=== PATIENT | female | born 1975 | race Caucasian/White ===

== ENCOUNTER 2019-07-22 08:03 | Outpatient (RCR) | payer OTHER, SELFPAY | END 2019-10-20 23:59 | disposition home or self-care (01) | LOC: CHSOT 08:03 | DX: Z98.890 Other specified postprocedural states (principal); M25.521 Pain in right elbow | CPT/HCPCS: 97014; 97110; G0283 ==

== ENCOUNTER 2021-08-31 15:44 | Outpatient (CLI) | payer OTHER, SELFPAY ==
[2021-08-31 17:21] LABS: SARS-CoV-2 Ag Positive (Negative)
== END 2021-08-31 15:45 | disposition home or self-care (01) ==
LOC: CHSLAB 15:49
PROVIDERS: PCP Family Medicine; Visit Provider Nurse Practitioner
DX: U07.1 COVID-19 (principal)
CPT/HCPCS: 87426; C9803

== ENCOUNTER 2025-05-11 08:20 | Outpatient (CLI) | payer OTHER, SELFPAY ==
--- NOTE | ~2025-05-11 | MM_ITS ---
EXAMINATION: MM scrn therese implant BI w lyle HISTORY: Screening mammogram TECHNIQUE: Craniocaudal and mediolateral oblique 3-D tomosynthesis images with implant displacement and synthetic 2-D images were generated. Craniocaudal and mediolateral oblique views of the breasts without implant displacement were obtained using full field digital mammography. CAD analysis was submitted and interpreted. COMPARISON: No prior mammogram is available for comparison at this institution. BREAST PARENCHYMAL COMPOSITION: FINDINGS: There are bilateral subpectoral implants. There is no evidence of suspicious mass, calcification, or architectural distortion to suggest malignancy in either breast. There has been no suspicious interval change. IMPRESSION: 1. No mammographic evidence of malignancy. 2. Recommend routine screening mammography in one year. BI-RADS Category 1: Negative Reviewed, dictated and finalized at location [facility].
== END 2025-05-11 08:21 | disposition home or self-care (01) ==
LOC: ANHIMG 08:22
PROVIDERS: PCP Nurse Practitioner Family; Visit Provider Nurse Practitioner Family
DX: Z12.31 Encounter for screening mammogram for malignant neoplasm of breast (principal); Z98.82 Breast implant status
CPT/HCPCS: 77063; 77067

== ENCOUNTER 2025-06-01 01:16 | Day surgery (SDC) | payer OTHER, SELFPAY ==
[2025-02-27 11:16] VITALS: BMI 25.0
[2025-05-14 13:10] VITALS: BMI 25.0
[2025-06-01 11:37] VITALS: BP 121/70; PULSE 62; RESP 18; TEMP 36.8; O2SAT 100
--- NOTE | 2025-06-01 11:49 | WPDANESEPPF ---
Anes - Initial Pre Proc Eval Procedure: Operation Date: 06/01/25 13:00 Proposed Procedures p Screening Colonoscopy - Lonnie Manning MD Date/Time: 06/01/25 11:49 Surgeon: Lonnie Manning MD Pre Op Diagnosis: Screening Patient Data Age: 49 Gender: F Height: 1.63 m Weight: 68.4 kg Last Vital Signs Temp 98.2 F 06/01/25 11:37 Pulse 62 06/01/25 11:37 Resp 18 06/01/25 11:37 BP 121/70 06/01/25 11:37 Pulse Ox 100 06/01/25 11:37 O2 Del Method Room Air 06/01/25 11:37 Allergies Allergy/AdvReac Type Severity Reaction Status Date / Time No Known Allergies Allergy Verified 05/14/25 13:09 Home Medications ?Medication ?Instructions ?Recorded ?Confirmed ?Type levonorgestrel (Mirena) 1 device intrauterine ONCE 11/05/24 05/14/25 History benzonatate 200 mg capsule 200 mg PO TID PRN cough #30 caps 01/29/25 02/27/25 Rx Patient hx anesthesia problems: none Family hx anesthesia problems: none Results Review: All pre-operative results and documents have been reviewed as part of the pre-operative evaluation. [facility] Past Medical History Medical History Arthritis Surgical History Surgical History Hx of elbow surgery plate in right elbow Hx of breast implants, bilateral Family History Family History Mother Asthma Thyroid disorder Sibling Thyroid disorder Father Malignant neoplasm of esophagus Other Family history of malignant neoplasm Social History Social History Smoking status: Never smoker Alcohol intake: current Drinks per week: 2 Substance use: never Substance use type: does not use Do You Feel Safe in your Home?: Yes Lack of Transportation: No Lack of Food: Never True Current Housing: I Have Housing Concerned About Future Housing: No Difficulty Paying Gas/Electric Bills: No Difficulty Paying for Meds: No Currently Unemployed: No Education: Associate Degree Difficulty w/ Childcare or Family Care: No Living arrangements: alone Spiritual care concerns: No Anes - Eval Final PreProcedure Day of Procedure 06/01/25 11:49 Patient weight: normal Lungs: normal air movement Airway: Mallampati scale class II Neurological: alert and oriented Last oral intake: >/= 8 hours ASA classification: I Emergent: no Anesthetic plan: proceed Anesthesia type and monitoring: general GIVS and standard monitoring Results Review: All pre-operative results and documents have been reviewed as part of the pre-operative evaluation. Pt remote ex smoker, quit 1990s, active w workouts sometimes twice daily, no cp or sob. Informed Consent: The patient's anesthetic plan and its attendant risks and benefits were discussed with the patient/family/POA. Questions were solicited and answers provided to the satisfaction of the patient/family/POA.
--- NOTE | 2025-06-01 12:50 | PM.IMHP ---
H&P: HPI History of Present Illness Date/Time: 06/01/25 12:50 Chief Complaint: Screening colonoscopy Narrative: This is the patient's first colonoscopy. There are no GI symptoms and there is no family history of colorectal cancer. Review of Systems Review of Systems: All systems reviewed & are unremarkable except as noted in HPI and below [facility] Past Medical History Medical History Arthritis Surgical History Surgical History Hx of elbow surgery plate in right elbow Hx of breast implants, bilateral Family History Family History Mother Asthma Thyroid disorder Sibling Thyroid disorder Father Malignant neoplasm of esophagus Other Family history of malignant neoplasm Social History Social History Smoking status: Never smoker Alcohol intake: current Drinks per week: 2 Substance use: never Substance use type: does not use Do You Feel Safe in your Home?: Yes Lack of Transportation: No Lack of Food: Never True Current Housing: I Have Housing Concerned About Future Housing: No Difficulty Paying Gas/Electric Bills: No Difficulty Paying for Meds: No Currently Unemployed: No Education: Associate Degree Difficulty w/ Childcare or Family Care: No Living arrangements: alone Spiritual care concerns: No Meds Home Medications and Allergies Home Medications ?Medication ?Instructions ?Recorded ?Confirmed ?Type levonorgestrel (Mirena) 1 device intrauterine ONCE 11/05/24 05/14/25 History benzonatate 200 mg capsule 200 mg PO TID PRN cough #30 caps 01/29/25 02/27/25 Rx Allergies Allergy/AdvReac Type Severity Reaction Status Date / Time No Known Allergies Allergy Verified 05/14/25 13:09 Vital Signs Vital Signs - 24 hr 06/01/25 11:37 Temperature 98.2 F Pulse Rate 62 Respiratory Rate 18 Blood Pressure 121/70 Pulse Oximetry 100 Oxygen Delivery Room Air Exam Const: General: cooperative and healthy appearing Resp: Effort & Inspection: normal respiratory effort and able to speak in complete sentences Auscultation: clear to auscultation bilaterally Cardio: Rate: regular rate Rhythm: regular rhythm GI: Inspection: normal to inspection GI Palp: No No hepatosplenomegaly present Auscultation: normal bowel sounds Rectal Exam: deferred Skin: General skin exam: normal color Psych: Appearance: grossly normal Mental Status: mental status grossly normal Assessment and Plan Assessment and plan (1) Colon cancer screening: Code(s): Z12.11 - Encounter for screening for malignant neoplasm of colon Status: Acute Assessment and Plan: The patient is deemed a good candidate for the procedure. Consent signed. Will proceed.
[2025-06-01 12:58] LABS: BEDSIDEPREGUCG Negative (Negative)
[2025-06-01] MEDS: LACTATED RINGERS 1,000 ML 150 ML IV CONT (13:12)
[2025-06-01 13:16] VITALS: BP 100/61; PULSE 86; RESP 22; O2SAT 100
[2025-06-01 13:26] VITALS: BP 106/65; PULSE 77; RESP 24; O2SAT 100
[2025-06-01 13:36] VITALS: BP 116/68; PULSE 65; RESP 18; O2SAT 100
--- NOTE | 2025-06-01 13:41 | SUR.PHASEII ---
Addressed with pt if had any questions or concerns to discuss with , and she stated no. patient was given discharge papers with physicians number if she has any questions or concerns.
== END 2025-06-01 13:45 | disposition home or self-care (01) ==
PROVIDERS: Anesthesiology; PCP Nurse Practitioner Family; Referring Provider Nurse Practitioner Family; Visit Provider Internal Medicine Gastroenterology
PROC: 0DJD8ZZ Inspection of Lower Intestinal Tract, Via Natural or Artificial Opening Endoscopic (ICD-10-PCS; CPT 45378; principal; 2025-06-01 13:00)
DX: Z12.11 Encounter for screening for malignant neoplasm of colon (principal); M19.90 Unspecified osteoarthritis, unspecified site; Z98.890 Other specified postprocedural states; Z80.0 Family history of malignant neoplasm of digestive organs
CPT/HCPCS: 45378; J2704; J7120